=== PATIENT | male | born 1975 | race African-American/Black ===

== ENCOUNTER 2016-11-12 21:34 | Emergency (ER) | payer MEDICAID ==
[~2016-11-12] VITALS: Ht 167.6 cm; Wt 64.0 kg
[2016-11-12] MEDS ORDERED: LORAZEPAM 2MG/ML CPJ IV STA (22:07)
[2016-11-12] MEDS ORDERED: SODIUM CHLORIDE 0.9% 1,000 ML IV ONE (22:07)
[2016-11-12] MEDS ORDERED: HALOPERIDOL LACTATE 5MG/ML VIAL IM ONE (22:45)
[2016-11-12] MEDS ORDERED: LORAZEPAM 2MG/ML CPJ IM ONE (22:45)
[2016-11-12 22:52] LABS: BASOPHILS % 0.6 % (0.0-2.0); EOSINOPHILS % 0.8 % (0.0-5.0); HEMATOCRIT. 44.3 % (42.0-52.0); HEMOGLOBIN. 15.1 g/dL (14.0-18.0); LYMPHOCYTES % 13.9 % (20.0-50.0); MEAN CORPUSCULAR HEMOGLOBIN 28.5 pg (28.0-32.0); MEAN CORPUSCULAR VOLUME 83.8 fL (80.0-94.0); MEAN PLATELET VOLUME 8.2 fl (7.4-10.4); MONOCYTES % 8.5 % (2.0-8.0); NEUTROPHILS % 76.2 % (40.0-76.0); PLATELET 200 x1000/uL (130-400); RED BLOOD CELL COUNT 5.29 mill/uL (4.7-6.1); RED CELL DISTRIBUTION WIDTH 13.4 % (11.6-14.6)
[2016-11-12 22:58] LABS: CHLORIDE 106 mEq/L (98-107); PROTHROMBIN TIME 10.7 sec (9.4-11.6)
[2016-11-12 23:02] LABS: CARBON DIOXIDE 25 mEq/L (21-32); ETHANOL BLOOD < 10 mg/dL
[2016-11-12 23:09] LABS: TROPONIN I 0.02 ng/mL (0.00-0.04)
[2016-11-12 23:11] LABS: AMMONIA 27 uMol/L (<32)
[2016-11-13] MEDS ORDERED: LORAZEPAM 2MG/ML CPJ IM ONE
[2016-11-13 02:02] LABS: CLARITY URINE CLEAR (CLEAR); COLOR URINE YELLOW (YELLOW); GLUCOSE URINE NEGATIVE (NEGATIVE); KETONES URINE NEGATIVE (NEGATIVE); LEUKOCYTE ESTERASE URINE NEGATIVE (NEGATIVE); NITRITE URINE NEGATIVE (NEGATIVE); OCCULT BLOOD URINE NEGATIVE (NEGATIVE); PH URINE 5.5 (4.5-8.0); PROTEIN URINE NEGATIVE (NEGATIVE); SPECIFIC GRAVITY URINE 1.013 (1.005-1.030); UROBILINOGEN URINE 0.2 E.U./dL (0.2-1.0)
[2016-11-13 02:40] LABS: *AMPHETAMINES SCREEN URINE NEGATIVE (NEGATIVE); *BARBITURATES SCREEN URINE NEGATIVE (NEGATIVE); *BENZODIAZEPINES SCREEN URINE NEGATIVE (NEGATIVE); *COCAINE SCREEN URINE NEGATIVE (NEGATIVE); CANNABINOID URINE SCREEN NEGATIVE (NEGATIVE); METHADONE URINE SCREEN NEGATIVE (NEGATIVE); OPIATES URINE SCREEN NEGATIVE (NEGATIVE); PHENCYCLIDINE URINE SCREEN PRESUMTIVE POSITIVE (NEGATIVE)
[2016-11-13 09:19] VITALS: BP 126/71
== END 2016-11-13 09:28 | disposition home or self-care (01) ==
LOC: ER 22:00
DX: R41.82 Altered mental status, unspecified (principal)
CPT/HCPCS: 36415; 70450; 71010; 80053; 80305; 80307; 80329; 81003; 82140; 84484; 85025; 85610; 86850; 86900; 86901; 93005; 96361; 96372; 96374; 99285; G0482; J1630; J2060; J7030; Z7610